=== PATIENT | male | born 1960 | race Caucasian/White ===

== ENCOUNTER 2021-08-14 10:30 | Outpatient (CLI) | payer BC | END 2021-08-14 10:31 | disposition home or self-care (01) | LOC: CSHMRI 10:30 | PROVIDERS: ATTEND Nurse Practitioner Family | DX: M54.16 Radiculopathy, lumbar region (principal); Z98.890 Other specified postprocedural states; M47.816 Spondylosis without myelopathy or radiculopathy, lumbar region; M53.86 Other specified dorsopathies, lumbar region | CPT/HCPCS: 72158 ==

== ENCOUNTER 2022-01-27 09:12 | Outpatient (CLI) | payer BC | END 2022-01-27 09:13 | disposition home or self-care (01) | LOC: CSHCT 09:12 | PROVIDERS: ATTEND Neurological Surgery | DX: M54.50 Low back pain, unspecified (principal); Z98.890 Other specified postprocedural states; M47.816 Spondylosis without myelopathy or radiculopathy, lumbar region | CPT/HCPCS: 72131 ==

== ENCOUNTER 2024-02-10 10:29 | Outpatient (CLI) | payer BC | END 2024-02-10 10:30 | disposition home or self-care (01) | LOC: CSHCT 10:29 | PROVIDERS: ATTEND Family Medicine | DX: R10.9 Unspecified abdominal pain (principal) | CPT/HCPCS: 74176 ==

== ENCOUNTER 2024-12-17 22:41 | Emergency (ER) | payer BC ==
[~2024-12-17 22:41] MED LIST: Iopamidol 370 76% 100 ML VIAL ONE
[2024-12-17 23:04] LABS: Glucose, Urine (Dipstick) Normal (Negative); Leukocyte Negative (Negative); Protein, Urine (Dipstick) 30 mg/dl (Neg-Trace); Specific Gravity, Urine 1.025 (1.005-1.030)
[2024-12-17] MEDS ORDERED: Ondansetron PF 4 MG/2 ML Vial ONE (23:06)
[2024-12-17 23:10] LABS: Bacteria/HPF None Seen HPF (None Seen); CAUTI Indications for Culture Dysuria,urgency,freq; RBC/HPF 0-3 HPF (0-3); WBC/HPF 0-3 HPF (0-3)
[2024-12-17 23:10] LABS: #Basophils 0.04 10x3/uL (0.0-0.2); #Eosinophils 0.09 10x3/uL (0.0-0.5); #Monocytes 0.81 10x3/uL (0.0-1.1); #Neutrophils 6.79 10x3/uL (1.5-8.4); %Basophils 0.4 % (0.0-2.0); %Eosinophils 0.9 % (0.0-6.0); %Lymphocytes 20.4 % (18.0-47.0); %Monocytes 8.3 % (0.0-10.0); %Neutrophils 69.5 % (40.0-75.0); Hematocrit 48.6 % (38.8-50.0); Hemoglobin 17.4 g/dL (13.5-17.5); Mean Corpuscular Hemoglobin 34.5 pg (27.0-33.0); Mean Corpuscular Volume 96.4 fL (81.2-95.1); Platelet Count 189 10x3/uL (150-450); Red Blood Cell (RBC) Count 5.04 10x6/uL (4.32-5.72); White Blood Cell (WBC) Count 9.78 10x3/uL (3.5-10.5)
[2024-12-17 23:11] LABS: Urine Culture Reflex No No
[2024-12-17 23:26] LABS: ALT (SGPT) 29 U/L (Less than 45); AST (SGOT) 27 U/L (11-34); Albumin 4.4 g/dL (3.1-4.5); Alkaline Phosphatase 62 U/L (40-110); Anion Gap 15 mmol/L (10-20); BUN (Urea Nitrogen) 18 mg/dL (8.4-25.7); Bilirubin, Total 1.5 mg/dL (0.3-1.2); Calc. Creatinine Clearance 0 mL/min (70-130); Calcium 9.1 mg/dL (7.8-10.44); Carbon Dioxide 22 mmol/L (23-31); Chloride 106 mmol/L (98-107); Globulin 3.2 g/dL (2.4-3.5); Glucose 120 mg/dL (80-115); Lipase 54 U/L (8-78); Potassium 3.6 mmol/L (3.5-5.1); Sodium 139 mmol/L (136-145)
[2024-12-18 00:17] LABS: Troponin I Less than 0.010 ng/mL (< 0.028)
[2024-12-18] MEDS ORDERED: Mag-Al 1200 mg/1200 mg/30 ML UDCUP ONE (00:27)
[2024-12-18] MEDS ORDERED: Lidocaine Viscous Sol 2% 15 ml UD Cup ONE (00:27)
[2024-12-18] MEDS ORDERED: Ketorolac Tromethamine 30 MG (1 mL) VIAL ONE (00:58)
[2024-12-18] MEDS ORDERED: Methocarbamol 500 MG TAB ONE (01:14)
== END 2024-12-18 02:07 | disposition home or self-care (01) ==
LOC: CSHERS 22:41
DX: M54.50 Low back pain, unspecified (principal); R10.84 Generalized abdominal pain; R31.9 Hematuria, unspecified; R11.2 Nausea with vomiting, unspecified; M79.669 Pain in unspecified lower leg; E78.5 Hyperlipidemia, unspecified; Z79.899 Other long term (current) drug therapy
CPT/HCPCS: 74177; 80053; 81001; 83605; 83690; 84484; 85025; 93005; 93010; 96374; 96375; J1885; J2270; Q9967